=== PATIENT | male | born 1970 | race Caucasian/White ===

== ENCOUNTER 2024-09-15 21:44 | Inpatient (IN) | payer OTHER ==
[~2024-09-15] VITALS: Ht 193 cm; Wt 102.7 kg
[2024-09-15 23:06] LABS: BASOPHILS % (AUTO) 0.4 % (0.0-2.0); EOSINOPHILS % (AUTO) 0.9 % (1.0-6.0); HEMATOCRIT 39.9 % (41-53); HEMOGLOBIN 13.5 g/dL (13.5-17.5); LYMPHOCYTES # (AUTO) 2.2 K/uL (1.0-4.8); LYMPHOCYTES % (AUTO) 18.3 % (22.0-44.0); MEAN CORPUSCULAR HEMOGLOBIN 30.1 pg (26.0-34.0); MEAN CORPUSCULAR HGB CONC 33.9 G/dL (31.0-37.0); MEAN CORPUSCULAR VOLUME 89 fL (80-100); MONOCYTES # (AUTO) 0.8 K/uL (0.1-1.0); MONOCYTES % (AUTO) 6.7 % (2.0-9.0); NEUTROPHILS # (AUTO) 8.9 K/uL (1.8-7.7); NEUTROPHILS % (AUTO) 73.7 % (40.0-70.0); PLATELET COUNT (AUTO) 308 K/uL (150-450); RED BLOOD CELL COUNT(AUTO) 4.49 MIL/uL (4.50-5.90); RED CELL DISTRIBUTION WIDTH 13.4 % (11.5-14.5); WHITE BLOOD COUNT (AUTO) 12.1 K/uL (4.5-11.0)
[2024-09-15 23:19] LABS: ANION GAP 5 mmol/L (8-16); CALCIUM, TOTAL 10.1 mg/dL (8.8-10.5); CARBON DIOXIDE 29 mmol/L (22-29); CHLORIDE 103 mmol/L (98-107); CREATININE 1.22 mg/dL (0.60-1.30); GLOMERULAR FILTR. RATE CALC > 60 mL/min (>60); GLUCOSE,RANDOM 113 mg/dL (70-110); POTASSIUM 3.9 mmol/L (3.5-5.1); SODIUM SERUM 137 mmol/L (136-145); UREA NITROGEN, BLOOD 18 mg/dL (7-18)
[2024-09-15 23:23] LABS: ALBUMIN 3.7 g/dL (3.4-5.0); BILIRUBIN,DIRECT 0.1 mg/dL (0.00-0.20); BILIRUBIN,TOTAL 0.4 mg/dL (0.1-1.0); TOTAL PROTEIN, SERUM 7.5 g/dL (6.4-8.2)
[2024-09-16] MEDS ORDERED: KETOROLAC TROMETHAMINE 30 MG/ML VIAL IVP ONE
[2024-09-16] MEDS: POLYETHYLENE GLYCOL 3350 17 GM PACKET PO ONE (00:05)
[2024-09-16] MEDS: KETOROLAC TROMETHAMINE 15 MG/ML VIAL IVP ONE (00:05)
[2024-09-16] MEDS ORDERED: IOHEXOL 300 MG/ML 100 ML VIAL ONE (00:12)
[2024-09-16] MEDS ORDERED: SODIUM CHLORIDE 0.9% 100 ML ONE ×2 (00:12→08:14)
[2024-09-16] MEDS: HYDROmorphone HCL 2 MG/ML SYRINGE IVP ONE (06:17)
[2024-09-16 06:21] LABS: PROTHROMBIN TIME 10.9 SEC (9.4-11.6)
[2024-09-16] MEDS: PIPERACILLIN SODIUM/TAZOBACTAM 4.5 GM in DEXTROSE 5%-WATER 100 ML IV ONE (06:29)
[2024-09-16] MEDS: IOHEXOL 9 MG/ML 500 ML BOTTLE PO ONE (07:30)
[2024-09-16] MEDS ORDERED: IOHEXOL 350 MG/ML 100 ML VIAL ONE (08:14)
[2024-09-16] MEDS: LIDOCAINE 2% 6 ML JELLY TP ONE ×2 (09:11→22:15)
[2024-09-16] MEDS: MORPHINE SULFATE 4 MG/ML SYRINGE IVP ONE (10:54)
[2024-09-16] MEDS ORDERED: BUPR1FIL7 SL (11:24)
[2024-09-16] MEDS ORDERED: 0.9% SODIUM CHLORIDE 10 ML VIAL ONE ×2 (12:00)
[2024-09-16] MEDS ORDERED: HYDROmorphone HCL 2 MG/ML SYRINGE ONE (12:00)
[2024-09-16] MEDS ORDERED: MIDAZOLAM HCL 2 MG/2 ML VIAL ONE (12:00)
[2024-09-16] MEDS ORDERED: CeFAZolin SODIUM 1 GM VIAL ONE ×2 (12:00)
[2024-09-16] MEDS ORDERED: SUGAMMADEX SODIUM 200 MG/2 ML VIAL IVP ONE ×2 (12:00)
[2024-09-16] MEDS ORDERED: ACETAMINOPHEN/ISO-OSM 1000 MG/100 ML BOTTLE IV ONE ×2 (12:00)
[2024-09-16] MEDS ORDERED: PROPOFOL 1% 20 ML VIAL IVP ONE ×2 (12:00)
[2024-09-16] MEDS ORDERED: LIDOCAINE/PF 2% 5 ML VIAL ONE ×2 (12:00)
[2024-09-16] MEDS ORDERED: KETOROLAC TROMETHAMINE 60 MG/2 ML VIAL IM ONE ×2 (12:00)
[2024-09-16] MEDS ORDERED: FentaNYL CITRATE PF 100 MCG/2 ML VIAL ONE ×2 (12:00→15:50)
[2024-09-16] MEDS ORDERED: ONDANSETRON HCL 4 MG/2 ML VIAL ONE ×2 (12:00)
[2024-09-16] MEDS ORDERED: DEXAMETHASONE SOD PHOS 4 MG/ML VIAL ONE ×2 (12:00)
[2024-09-16] MEDS ORDERED: ROCURONIUM BROMIDE 10 MG/ML 5 ML VIAL ONE ×2 (12:00)
[2024-09-16] MEDS ORDERED: ACETAMINOPHEN 325 MG TABLET PO PRN (13:00)
[2024-09-16] MEDS ORDERED: ZOLPIDEM TARTRATE 5 MG TABLET PO PRN (13:00)
[2024-09-16] MEDS ORDERED: BISACODYL 10 MG RECTAL RECTAL SUPPOSITORY PR PRN (13:00)
[2024-09-16] MEDS: CHLORHEXIDINE GLUCONATE 2% TOWELETTE [2'S/6'S] TP ONE (13:14)
[2024-09-16] MEDS: ETHYL ALCOHOL 62% ANTISEPTIC NASAL SANITIZER 0.6 ML AMPUL NASAL ONE (13:14)
[2024-09-16] MEDS: RINGERS SOLUTION,LACTATED 1,000 ML IV ONE (13:15)
[2024-09-16] MEDS: BUPIVACAINE 0.25%/EPI 1:200,000/PF 30 ML VIAL ONE (14:36)
[2024-09-16] MEDS ORDERED: MEPERIDINE-PF 25 MG/ML VIAL IVP PRN (14:45)
[2024-09-16] MEDS ORDERED: HYDROmorphone HCL 2 MG/ML SYRINGE IVP PRN (14:45)
[2024-09-16] MEDS: FentaNYL CITRATE PF 100 MCG/2 ML VIAL IVP PRN (15:51)
[2024-09-16 16:44] VITALS: BP 121/83; PULSE 75; RESP 20; TEMP 98.2; O2SAT 95
[2024-09-16] MEDS: HEPARIN SODIUM,PORCINE 5,000 UNITS/ML VIAL SQ SCH (17:00)
[2024-09-16] MEDS: DEXTROSE 5%-0.45% SODIUM CHL 1,000 ML IV SCH (17:55)
[2024-09-16] MEDS: KETOROLAC TROMETHAMINE 15 MG/ML VIAL IVP SCH (17:57)
[2024-09-16] MEDS: DIATRIZOATE MEGLU/SOD 660/100 MG/ML 120 ML BOTTLE NG ONE (18:22)
[2024-09-16] MEDS: OXYGEN THERAPY IH SCH (20:00)
[2024-09-16] MEDS: DOCUSATE SODIUM 100 MG CAPSULE PO SCH (20:47)
[2024-09-16] MEDS: MORPHINE SULFATE 2 MG/ML SYRINGE IVP PRN (21:06)
[2024-09-16 21:07] VITALS: BP 121/77; PULSE 68; RESP 17; TEMP 98.2; O2SAT 98
[2024-09-16] MEDS: ONDANSETRON HCL 4 MG/2 ML VIAL IVP PRN (22:02)
[2024-09-17 04:44] VITALS: BP 116/75; PULSE 70; RESP 18; TEMP 97.7; O2SAT 93
[2024-09-17 08:44] VITALS: BP 115/74; PULSE 68; RESP 18; TEMP 97.3; O2SAT 96
[2024-09-17] MEDS: PANTOPRAZOLE SODIUM 40 MG DR TABLET PO SCH (09:00)
[2024-09-17] MEDS: *CLINICAL-LEVOFLOXACIN IVPB DOSING CLINICAL ONE (09:41)
[2024-09-17] MEDS: MAGNESIUM HYDROXIDE SUSPENSION 30 ML UDCUP PO PRN (10:00)
[2024-09-17] MEDS: LEVOFLOXACIN 750 MG/D5% WATER 150 ML IV SCH (10:44)
[2024-09-17 11:55] LABS: BASOPHILS % (AUTO) 0.3 % (0.0-2.0); EOSINOPHILS % (AUTO) 0 % (1.0-6.0); HEMATOCRIT 36.9 % (41-53); HEMOGLOBIN 12.6 g/dL (13.5-17.5); LYMPHOCYTES # (AUTO) 1.3 K/uL (1.0-4.8); LYMPHOCYTES % (AUTO) 12.2 % (22.0-44.0); MEAN CORPUSCULAR HEMOGLOBIN 30.5 pg (26.0-34.0); MEAN CORPUSCULAR HGB CONC 34.2 G/dL (31.0-37.0); MEAN CORPUSCULAR VOLUME 89 fL (80-100); MONOCYTES % (AUTO) 8.9 % (2.0-9.0); NEUTROPHILS # (AUTO) 8.5 K/uL (1.8-7.7); NEUTROPHILS % (AUTO) 78.6 % (40.0-70.0); PLATELET COUNT (AUTO) 269 K/uL (150-450); RED BLOOD CELL COUNT(AUTO) 4.14 MIL/uL (4.50-5.90); RED CELL DISTRIBUTION WIDTH 13.5 % (11.5-14.5); WHITE BLOOD COUNT (AUTO) 10.8 K/uL (4.5-11.0)
[2024-09-17 12:02] LABS: ANION GAP 4 mmol/L (8-16); CALCIUM, TOTAL 8.5 mg/dL (8.8-10.5); CARBON DIOXIDE 28 mmol/L (22-29); CHLORIDE 105 mmol/L (98-107); CREATININE 1.09 mg/dL (0.60-1.30); GLOMERULAR FILTR. RATE CALC > 60 mL/min (>60); GLUCOSE,RANDOM 154 mg/dL (70-110); POTASSIUM 3.9 mmol/L (3.5-5.1); SODIUM SERUM 137 mmol/L (136-145); UREA NITROGEN, BLOOD 19 mg/dL (7-18)
[2024-09-17] MEDS ORDERED: PREG50 PO (16:31)
[2024-09-17] MEDS ORDERED: DICL100G60 TP (16:31)
[2024-09-17] MEDS ORDERED: LEVA15HF3 PO (16:31)
[2024-09-17] MEDS ORDERED: MOME13HF8 PO (16:31)
[2024-09-17] MEDS ORDERED: CALC500T37 PO (16:31)
[2024-09-17] MEDS ORDERED: MIRT-89 PO (16:31)
[2024-09-17] MEDS ORDERED: ACET-2247 PO (16:31)
[2024-09-17] MEDS ORDERED: IBUP-1492 PO (16:31)
[2024-09-17] MEDS ORDERED: LIDO1ADH83 TP (16:31)
[2024-09-17] MEDS ORDERED: HYDR50CA7 PO (16:31)
[2024-09-17] MEDS: HYDROCODONE/ACETAMINOPHEN 5-325 MG TABLET PO PRN (18:43)
[2024-09-17 20:25] VITALS: BP 111/74; PULSE 81; RESP 19; TEMP 98.2; O2SAT 98
[2024-09-17] MEDS ORDERED: IBUPROFEN 600 MG TABLET PO PRN (20:45)
[2024-09-17] MEDS ORDERED: HydrOXYzine PAMOATE 50 MG CAPSULE PO PRN (20:45)
[2024-09-17] MEDS ORDERED: CALCIUM CARBONATE 500 MG CHEWABLE TABLET CHEW PRN (20:45)
[2024-09-17] MEDS ORDERED: DICLOFENAC SODIUM 1% 100 GM GEL [4GM] TP PRN (21:15)
[2024-09-17] MEDS ORDERED: LEVALBUTEROL TARTRATE HFA 45 MCG/PUFF 15 GM INHALER IH PRN (21:15)
[2024-09-17] MEDS: MIRTAZAPINE 15 MG TABLET PO SCH (21:31)
[2024-09-17] MEDS: PREGABALIN 50 MG CAPSULE PO SCH (21:31)
[2024-09-18 05:46] VITALS: BP 111/77; PULSE 62; RESP 19; TEMP 97.8; O2SAT 97
[2024-09-18 08:30] VITALS: BP 125/89; PULSE 63; RESP 18; TEMP 97.7; O2SAT 97
[2024-09-18 08:44] LABS: BASOPHILS % (AUTO) 0.3 % (0.0-2.0); EOSINOPHILS % (AUTO) 0.7 % (1.0-6.0); HEMOGLOBIN 12.8 g/dL (13.5-17.5); LYMPHOCYTES # (AUTO) 2.5 K/uL (1.0-4.8); LYMPHOCYTES % (AUTO) 34.3 % (22.0-44.0); MEAN CORPUSCULAR HEMOGLOBIN 30.1 pg (26.0-34.0); MEAN CORPUSCULAR HGB CONC 33.7 G/dL (31.0-37.0); MEAN CORPUSCULAR VOLUME 89 fL (80-100); MONOCYTES # (AUTO) 0.5 K/uL (0.1-1.0); MONOCYTES % (AUTO) 7.2 % (2.0-9.0); NEUTROPHILS # (AUTO) 4.2 K/uL (1.8-7.7); NEUTROPHILS % (AUTO) 57.5 % (40.0-70.0); PLATELET COUNT (AUTO) 245 K/uL (150-450); RED BLOOD CELL COUNT(AUTO) 4.27 MIL/uL (4.50-5.90); RED CELL DISTRIBUTION WIDTH 13.3 % (11.5-14.5); WHITE BLOOD COUNT (AUTO) 7.4 K/uL (4.5-11.0)
[2024-09-18 08:52] LABS: ANION GAP 7 mmol/L (8-16); CALCIUM, TOTAL 8.7 mg/dL (8.8-10.5); CARBON DIOXIDE 26 mmol/L (22-29); CHLORIDE 106 mmol/L (98-107); CREATININE 1.12 mg/dL (0.60-1.30); GLOMERULAR FILTR. RATE CALC > 60 mL/min (>60); GLUCOSE,RANDOM 108 mg/dL (70-110); POTASSIUM 3.8 mmol/L (3.5-5.1); SODIUM SERUM 139 mmol/L (136-145); UREA NITROGEN, BLOOD 17 mg/dL (7-18)
[2024-09-18] MEDS ORDERED: PANT-31 PO (13:06)
[2024-09-18] MEDS ORDERED: LEVO750T68 PO (13:09)
== END 2024-09-18 18:30 | DRG 330 ==
LOC: EMS 21:44 → EDH 09-16 07:34 → 6S 09-16 16:41
PROVIDERS: ADMIT Internal Medicine; ATTEND Internal Medicine
PROC: 0DTJ4ZZ Resection of Appendix, Percutaneous Endoscopic Approach (ICD-10-PCS; 2024-09-16)
PROC: 0DS Gastrointestinal System, Reposition (ICD-10-PCS; 2024-09-16)
PROC: 0DN84ZZ Release Small Intestine, Percutaneous Endoscopic Approach (ICD-10-PCS; 2024-09-16)
PROC: 0DNW4ZZ Release Peritoneum, Percutaneous Endoscopic Approach (ICD-10-PCS; 2024-09-16)
PROC: 0DS84ZZ Reposition Small Intestine, Percutaneous Endoscopic Approach (ICD-10-PCS; principal; 2024-09-16 14:05)
DX: K56.2 Volvulus (principal); E46 Unspecified protein-calorie malnutrition; F11.20 Opioid dependence, uncomplicated; Q43.3 Congenital malformations of intestinal fixation; E66.9 Obesity, unspecified; K56.609 Unspecified intestinal obstruction, unspecified as to partial versus complete obstruction; J45.909 Unspecified asthma, uncomplicated; K21.9 Gastro-esophageal reflux disease without esophagitis; Z68.27 Body mass index [BMI] 27.0-27.9, adult
CPT/HCPCS: 71045; 74018; 74177; 80048; 80076; 83690; 85025; 85610; 88304; 99285; J0131; J0690; J1100; J1171; J1644; J1885; J1956; J2250; J2270; J2405; J2543; J2704; J3010; J3490; J7050; J7060; Q9967; 36415-L1; 36415-TC